=== PATIENT | female | born 1970 | race Caucasian/White ===

== ENCOUNTER 2018-12-19 21:01 | Emergency (ER) | payer MEDICAID, SELFPAY ==
[2016-10-16 01:49] VITALS: BMI 31.1
[2018-12-19 21:05] VITALS: BP 107/63; PULSE 93; RESP 16; TEMP 37.1; O2SAT 96; BMI 33.6
[2018-12-19 21:19] VITALS: BP 107/63; PULSE 93; RESP 16; TEMP 37.1; O2SAT 96
--- NOTE | 2018-12-19 21:37 | ED.DCSUM_ITS ---
History of Present Illness Chief Complaint: Suicidal Informant: Patient Limited: Intoxicated Onset: Today Context: Sudden Onset Conflict: - - Pet tortoise Timing: Continuous Current Severity: Mild Maximum Severity: Severe Worsened by: Situational factors, Alcohol intoxication Associated Symptoms: Easily distracted, Confusion, Visual Hallucinations, Auditory Hallucinations. Negative for: Depressed, Change in Eating, Change in sleeping, Decreased Interest, Guilt, Decreased Concentration, Hopelessness, Suicidal Thoughts, Grandiosity, Flight of Ideas, Increased activity, Pressured Speech, Agitated, Angry, Hostile, Threatening, Paranoia Narrative: Patient is a 48-year-old woman with history of PTSD secondary to service who presents after self-inflicted injuries because her pet Rocio from pneumonia. She states her daughter asked to take the court is with her so that the patient's grandchildren could watch it. Apparently she used a vaporizer in the room with the tortoise in the tortoise developed pneumonia. Patient then informed me that she took the tortoise to a swab and he . She became agitated and had flashbacks of her son dying and daughter dying. Son of melanoma at age 21 and daughter hung herself at the age of 17. Patient admits she had a couple of drinks. She states they are diluted . She states she normally does not drink. She states she is on a muscle relaxant and benzodiazepine. She did harm herself 3 years ago. She was told by psychiatrist that the injury was because of a situational issue. Prior similar symptoms: Yes Recent Illness/Hospitalization: No - Past Medical History (1) History of posttraumatic stress disorder (PTSD) Status: Acute (2) Chronic pain Status: Chronic Past Medical History - Allergies and Home Meds Allergies/Adverse Reactions: Allergies codeine Allergy (Verified 12/19/18 21:03) Hives Penicillins Allergy (Verified 12/19/18 21:03) Hives Primary Care Physician: [facility] Doctor,Out of [NON-STAFF] - Prior records reviewed: No Surgical History: - - related right lower extremity Lives: Spouse/ Significant Other Smoking Status: Current every day smoker Review of Systems General: Denies: Chills, Fever, Sweats Eyes: Denies: Visual changes - bilaterally, Diplopia ENT: Denies: Rhinorrhea, Sore throat Cardiovascular: Denies: Chest pain, Palpitations Respiratory: Denies: Dyspnea, Cough, Dyspnea on exertion Gastrointestinal: Denies: Abdominal pain, Nausea, Vomiting, Diarrhea, Melena, Hematochezia Genitourinary: Denies: Dysuria, Hematuria, Frequency Musculoskeletal: Denies: Back pain, Extremity Pain Skin: Denies: Rash, Wounds Neurological: Denies: Headache, Weakness, Numbness Psych: Reports: - - Sad because toward his and self-inflicted wounds. Also visual and auditory hallucination of her son and daughter prior to their and suicide respectively Allergy: Denies: Uticaria, Swelling of the mouth Physical Exam Vital Signs/Narrative: Vital Signs Temp Pulse Resp BP Pulse Ox 12/19/18 21:19 98.8 F 93 16 107/63 96 12/19/18 21:05 98.8 F 93 16 107/63 96 Inital Vital Signs reviewed: Yes General: Well nourished, Well developed Head: Normocephalic, Atraumatic Eyes: Perrl, EOMI ENT: Moist mucous membranes, No rhinorrhea Neck: Supple, Nontender Cardiovascular: Regular rate, Regular rhythm, No murmurs Respiratory: No distress, CTA bilaterally, Chest nontender Abdomen: Soft, Nontender, Nondistended, Normal bowel sounds Back: Nontender, Normal Inspection Extremities: Nontender, No Edema, - - Numerous superficial abrasions/lacerations Skin: Normal color, No rash Neurological: Alert, Oriented x3, Cranial nerves II-XII grossly intact, Normal Strength, Normal Sensation Psych: Normal Speech Pattern, No suicidal or homicidal ideation, Labile, Hallucinations, Limited Judgement. Negative for: Blunted Affect, Flat Affect, Restricted Affect, Pressured Speech, Poverty of Speech, Flight of Ideas, Incoherent thoughts, Suicidal thoughts, Homicidal thoughts, Paranoid Ideation Diagnostic/Tx/Re-eval Laboratory Results 12/19/18 12/19/18 22:00 22:06 Urine Opiates Screen NEGATIVE Urine Methadone Screen NEGATIVE Ur Barbiturates Screen NEGATIVE Ur Phencyclidine Scrn NEGATIVE Ur Amphetamines Screen NEGATIVE U Methamphetamin-MDMA NEGATIVE U Benzodiazepines Scrn NEGATIVE Urine Cocaine Screen NEGATIVE U Cannabinoids Screen POSITIVE H Ur Drug Screen Comment Ethyl Alcohol 159.0 Tox is positive for cannabis. Alcohol is 159 which is elevated. This would explain her slurred speech. Patient will be discharged when her arrives. Case management was consulted to assess with safety plan and outpatient follow- up. Alcohol intoxication were obtained since clinically she is under the influence of something. Either she drink sniffily more than she claims or interaction with the occasion that she was prescribed for her chronic pain. ED Disposition - Plan for ED Patient: Disposition: Home or Assisted Living Diagnosis: Intentional self-harm by knife, initial encounter, Anxiety in acute stress reaction, Posttraumatic stress disorder, Formed hallucinations of people, Verbal auditory hallucinations Instructions: Alcohol Intoxication, Anxiety Reaction Referrals: [facility] Doctor,Out of [NON-STAFF] - Counseling,Center [GROUP OF PHYSICIANS] - Keep Gabriel appointment
--- NOTE | 2018-12-19 21:56 | ED.RN ---
PER DR VALENZUELA HE DOES NOT BELIEVE SHE IS CURRENTLY SUICIDAL
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
[2018-12-19] MEDS: LORazepam 1 MG Tablet PO (22:43)
[2018-12-19 22:44] VITALS: BP 110/74; PULSE 74; RESP 16; O2SAT 97
[2018-12-19 23:05] LABS: Amphetamine Urine VISTA NEGATIVE (<1000 ng/mL); Barbiturate Urine VISTA NEGATIVE (< 200 ng/mL); Benzodiazepine Urine VISTA NEGATIVE (< 200 ng/mL); Cocaine Urine VISTA NEGATIVE (< 300 ng/mL); Ecstacy Urine VISTA NEGATIVE (< 500 ng/mL); Methadone Urine VISTA NEGATIVE (< 300 ng/mL); PCP Urine VISTA NEGATIVE (< 25 ng/mL); THC Urine VISTA POSITIVE (< 50 ng/mL); Vista UDS pH Range 6
[2018-12-19 23:21] VITALS: BP 110/74; PULSE 74; RESP 16; O2SAT 97
--- NOTE | 2018-12-20 14:10 | CM.ED ---
Social Work Telephone call to patient for follow-up call. Patient stating to be doing better and to have gotten some good sleep last night. Patient stating to have PTSD and to have bad days at times. Patient stating that thoughts are better. Patient stating to be doing well and plans to attend crisis follow up appointment on Sunday. Patient thanking this nursing home social worker for the call. All questions answered. Romie STALLINGS, CARINA
== END 2018-12-19 23:23 | disposition home or self-care (01) ==
PROVIDERS: Emergency Provider Emergency Medicine; Family Provider Family Medicine; PCP Family Medicine
DX: F43.10 Post-traumatic stress disorder, unspecified (principal); F41.1 Generalized anxiety disorder; F43.0 Acute stress reaction; R44.0 Auditory hallucinations; F17.200 Nicotine dependence, unspecified, uncomplicated; Z79.899 Other long term (current) drug therapy; S40.812A Abrasion of left upper arm, initial encounter; S40.811A Abrasion of right upper arm, initial encounter; S80.812A Abrasion, left lower leg, initial encounter; S80.811A Abrasion, right lower leg, initial encounter; X78.9XXA Intentional self-harm by unspecified sharp object, initial encounter; Y93.89 Activity, other specified; Y92.009 Unspecified place in unspecified non-institutional (private) residence as the place of occurrence of the external cause; Y99.8 Other external cause status
CPT/HCPCS: 80307; 80320; 99283; G0480

== ENCOUNTER 2023-08-13 11:31 | Emergency (ER) | payer MEDICAID, SELFPAY ==
[2023-08-13 11:34] VITALS: BP 137/87; PULSE 118; RESP 16; TEMP 36.4; O2SAT 98; BMI 20.6
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
--- NOTE | 2023-08-13 12:05 | RAD_ITS ---
STUDY: X-RAY - LEFT RADIUS AND ULNA REASON FOR EXAM: Female, 53 years old. Injury/Pain TECHNIQUE: 2 view(s) of the forearm. COMPARISON: None. FINDINGS: There is no demonstrated soft tissue swelling. Normal visualized radius. Normal visualized ulna. RAD/Forearm 2 Views IMPRESSION: Normal x-ray examination of the radius and ulna. Electronically Signed: Rickie Gtz MD at 13:26 EDT ,
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
== END 2023-08-13 14:28 | disposition home or self-care (01) ==
PROVIDERS: Emergency Provider Emergency Medicine; PCP Family Medicine; Visit Provider Emergency Medicine
DX: T74.11XA Adult physical abuse, confirmed, initial encounter (principal); S20.20XA Contusion of thorax, unspecified, initial encounter; S50.12XA Contusion of left forearm, initial encounter; S50.11XA Contusion of right forearm, initial encounter; Y04.8XXA Assault by other bodily force, initial encounter; F32.A Depression, unspecified; F43.12 Post-traumatic stress disorder, chronic; I25.10 Atherosclerotic heart disease of native coronary artery without angina pectoris; I10 Essential (primary) hypertension; F17.210 Nicotine dependence, cigarettes, uncomplicated; Z63.4 Disappearance and death of family member; Y07.010 Husband, current, perpetrator of maltreatment and neglect
CPT/HCPCS: 73090; 87491; 87591; 99284

== ENCOUNTER 2023-08-31 06:39 | Emergency (ER) | payer MEDICAID, SELFPAY ==
[2023-08-31 06:40] VITALS: BP 134/99; PULSE 103; RESP 20; TEMP 36.2; O2SAT 97; BMI 23.3
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
--- NOTE | 2023-08-31 07:15 | RAD_ITS ---
STUDY: X-RAY CHEST REASON FOR EXAM: Female, 53 years old. Chest pain TECHNIQUE: Single AP portable view of the chest. COMPARISON: None. FINDINGS: The lungs are clear and expanded. There is no demonstrated pleural abnormality. Normal size heart. Normal mediastinum and chelle. Normal visualized pulmonary arteries. Normal visualized aortic arch and descending thoracic aorta. Normal visualized thoracic spine. Normal visualized ribs, clavicles, and shoulders. There is no demonstrated abnormality of the visualized soft tissue structures of the upper abdomen. RAD/Chest 1 View (Portable) IMPRESSION: Normal x-ray examination of the chest. Electronically Signed: Robbin Adams MD at 8:25 EDT ,
[2023-08-31 07:45] LABS: Bacteria 0 SEEN /hpf (None Seen); Mucous, Urine 0 SEEN /hpf (<or=2+); Red Blood Cells-Urine 0 SEEN /hpf (0-5); Squamous Epithelial Cells - UA 0 SEEN /hpf (5-10); White Blood Cells 0 SEEN /hpf (0-5)
[2023-08-31 07:48] LABS: Absolute Lymphocyte Count 1.73 X10^3/uL (0.83-4.51); Absolute Neutrophil Count 3.2 X10^3/uL (2.0-7.7); Basophil# 0.05 X10^3/uL; Basophil% 0.9 % (0-1); Eosinophil# 0.12 X10^3/uL; Eosinophils% 2.2 % (0-5); Hematocrit 47.2 % (37-47); Hemoglobin 15.2 g/dL (12.0-15.0); Lymphocyte # 1.73 X10^3/ul (0.83-4.51); Lymphocyte % 31.5 % (19-41); Mean Corp Hgb Conc 32.2 g/dL (32-36); Mean Corpuscular Hgb 29.2 pg (27.0-32.0); Mean Corpuscular Volume 90.8 fL (81-99); Mean Platelet Vol. 11.4 fl (6.2-12.0); Monocyte# 0.35 X10^3/uL; Monocyte% 6.4 % (0-10); NRBC Flagged by Analyzer 0 % (0-5); Neutrophil # 3.23 X10^3/uL (2.7-7.7); Neutrophil % 58.8 % (47-70); Platelet Count 110 K/mm3 (150-450); RBC Distribution Width CV 14.7 % (11.6-14.6); RBC Distribution Width SD 49.1 fl (35.1-43.9); White Blood Count 5.5 K/mm3 (4.4-11.0)
[2023-08-31 08:03] LABS: Amphetamine Urine VISTA NEGATIVE (<1000 ng/mL); Barbiturate Urine VISTA NEGATIVE (< 200 ng/mL); Benzodiazepine Urine VISTA NEGATIVE (< 200 ng/mL); Cocaine Urine VISTA NEGATIVE (< 300 ng/mL); Ecstacy Urine VISTA NEGATIVE (< 500 ng/mL); Methadone Urine VISTA NEGATIVE (< 300 ng/mL); PCP Urine VISTA NEGATIVE (< 25 ng/mL); THC Urine VISTA POSITIVE (< 50 ng/mL); Vista UDS pH Range 5
[2023-08-31 08:07] LABS: Color, Urine Yellow (Yellow); Glucose, Dipstick Normal (Normal); Ketone-Dipstick Negative (Negative); Leukocyte Esterase-Dipstick Negative /ul (Negative); Nitrite-Dipstick Negative (Negative); Occult Blood-Urine Negative /ul (Negative); Protein-Dipstick Negative (Negative); Urine Bilirubin Dipstick Negative (Negative); Urine Clarity Clear (Clear); Urine Urobilinogen Normal (Normal)
[2023-08-31 08:24] LABS: Anion Gap 6 (5-15); BUN 6 mg/dL (7-18); BUN/Creat Ratio 10.8 RATIO (10-20); Calcium,Total 8.9 mg/dL (8.5-10.1); Chloride 107 mmol/L (98-107); Creatinine, Serum 0.56 mg/dL (0.55-1.02); EST Glomerular Filtration Rate 121 mL/min (>60); Est Glom Filt Rate - Afr Amer 146 mL/min (>60); Estimated Creatinine Clearance 115.85 ml/min; Glucose 98 mg/dL (74-106); Potassium 3.7 mmol/L (3.5-5.1); Sodium Level 140 mmol/L (136-145); Troponin-I HS 5 pg/mL (3.0-54.0)
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
--- NOTE | 2023-08-31 10:00 | ED.RN ---
pt having increased agitation and behaviors at this time. pt banging forehead and hand off the glass while in room 14. pt yelling and screaming at staff. moved to room 4. and still agitated.
[2023-08-31] MEDS: Ziprasidone IM 20 MG/ML VIAL IM (10:04)
[2023-08-31 10:48] VITALS: BP 136/99; PULSE 94; RESP 18; O2SAT 96
--- NOTE | 2023-08-31 13:33 | ED.RN ---
accepting information from [facility] obtained at this time. this rn attempts to call mother of pt to update but no answer.
[2023-08-31 14:32] VITALS: BP 137/66; PULSE 72; RESP 16; TEMP 36.4; O2SAT 98
== END 2023-08-31 14:33 ==
PROVIDERS: Emergency Provider Emergency Medicine; PCP Family Medicine; Visit Provider Emergency Medicine
DX: F22 Delusional disorders (principal); F23 Brief psychotic disorder; R11.2 Nausea with vomiting, unspecified; I10 Essential (primary) hypertension; R06.02 Shortness of breath; E78.00 Pure hypercholesterolemia, unspecified; F17.210 Nicotine dependence, cigarettes, uncomplicated; I25.10 Atherosclerotic heart disease of native coronary artery without angina pectoris; Z79.899 Other long term (current) drug therapy
CPT/HCPCS: 71045; 80048; 80307; 80320; 81001; 84484; 85025; 93005; 96372; 99284; G0480

== ENCOUNTER 2024-05-17 23:09 | Emergency (ER) | payer MEDICAID, SELFPAY ==
[2024-05-17 23:11] VITALS: BP 116/78; PULSE 99; RESP 18; TEMP 36.7; O2SAT 95; BMI 25.3
--- NOTE | 2024-05-17 23:28 | ED.RN ---
pt is verbally abusive to staff and does not want to follow request. Attempt to get her from bathroom to bed and pt unsteady on feet.pt angry.
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
--- NOTE | 2024-05-18 | CT_ITS ---
INDICATION: trauma EXAMINATION: CT BRAIN - CT Head or Brain W/O Contrast Injection TECHNIQUE: Multiple axial images were obtained of the head without intravenous contrast. The protocol utilizes one or more of the following dose reduction techniques: automated exposure control, adjustment of mA and/or kV according to patient size,and/or use of iterative reconstruction technique. IV Contrast dosage and agent: None. RADIATION DOSAGE (If Supplied By Facility): CTDIvol = ( 44.99 ) mGy, DLP = ( 796.11 ) mGycm COMPARISON: No relevant prior comparison study available FINDINGS: BRAIN: No acute bleed. No edema. Ch[place]-white matter differentiation is maintained. VENTRICLES AND SULCI: Not dilated. EXTRA-AXIAL: No hemorrhage, fluid collection, or mass. CALVARIUM / SKULL BASE: Unremarkable. FACE/SINUSES: Unremarkable. SOFT TISSUES: Unremarkable. CT/Brain/Head without Contrast IMPRESSION: No acute abnormality. Electronically Signed: Yolette Riojas MD at 2:39 EST ,
--- NOTE | 2024-05-18 | CT_ITS ---
INDICATION: trauma EXAMINATION: CT FACIAL BONES - CT Maxillofacial W/O Contrast Injection TECHNIQUE: Helically acquired images were obtained of the facial bones. A radiation dose optimization technique was used for this scan. The protocol utilizes one or more of the following dose reduction techniques: automated exposure control, adjustment of mA and/or kV according to patient size,and/or use of iterative reconstruction technique. IV Contrast dosage and agent: None. RADIATION DOSAGE (If Supplied By Facility): CTDIvol = ( 29.38 ) mGy, DLP = ( 547.46 ) mGycm COMPARISON: No relevant prior comparison study available FINDINGS: Image degradation from patient motion, especially limits evaluation of the mandible. ORBITS: No fracture demonstrated. Globes appear intact. No retrobulbar hematoma. NASAL BONES: Unremarkable. NASOETHMOID COMPLEX: Unremarkable. ZYGOMATIC ARCHES: Unremarkable. MAXILLAE: Unremarkable. PTERYGOID PLATES: Unremarkable. MANDIBLE: Limited. No definite fracture demonstrated. No dislocation at the temporomandibular joints. SINUSES: Mucosal thickening in the maxillary sinuses. SOFT TISSUES: Unremarkable. OTHER: Multiple dental caries and periapical lucencies. CT/Sinus/Facial Bone IMPRESSION: No evidence of fracture. Suboptimal assessment of the mandible, with no definite fracture. Electronically Signed: Yolette Riojas MD at 2:46 EST ,
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
[2024-05-18] MEDS: Fluorescein 1 MG STRIP 1 STRIP OPHTHALMIC (00:07)
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
--- NOTE | 2024-05-18 01:58 | ED.RN ---
Called sheet manager at [facility] sheet manager twice, no answer. Voicemai left
--- NOTE | 2024-05-18 07:18 | ED.RN ---
Mirtha Steward/Stewardess Bath at [facility] called back, unable to pick pt up from ED. Mirtha provided this RN with pt's daughters phone number, Sharmila. Sharmila contacted and said she will be in the ED to pick pt up within the hour.
== END 2024-05-18 07:23 | disposition home or self-care (01) ==
PROVIDERS: Emergency Provider Emergency Medicine; PCP Family Medicine; Visit Provider Emergency Medicine
DX: S00.12XA Contusion of left eyelid and periocular area, initial encounter (principal); I25.10 Atherosclerotic heart disease of native coronary artery without angina pectoris; F12.90 Cannabis use, unspecified, uncomplicated; F17.210 Nicotine dependence, cigarettes, uncomplicated; I25.2 Old myocardial infarction; Y04.8XXA Assault by other bodily force, initial encounter
CPT/HCPCS: 70450; 70486; 72125; 99285